=== PATIENT | female | born 2005 | race Caucasian/White ===

== ENCOUNTER 2023-10-08 15:22 | Emergency (ER) | payer OTHER ==
[2023-10-08] MEDS: Ondansetron 4 MG Tab.DIS PO ONE (16:16)
[2023-10-08] MEDS: Take Home: Ondansetron 4 MG Tab.DIS, 5 Tab Pack PO ONE (16:18)
== END 2023-10-08 16:45 | disposition home or self-care (01) ==
LOC: DL.ED 15:22
DX: K52.9 Noninfective gastroenteritis and colitis, unspecified (principal); F17.210 Nicotine dependence, cigarettes, uncomplicated
CPT/HCPCS: 99283; A9270; Q0162